=== PATIENT | female | born 2000 | race African-American/Black ===

== ENCOUNTER 2019-06-07 04:48 | Emergency (ER) | payer OTHER ==
[~2019-06-07] VITALS: Ht 157.5 cm; Wt 61.4 kg
[2019-06-07] MEDS ORDERED: ALBU8HFA IH (04:55)
[2019-06-07 04:59] VITALS: BP 116/75
== END 2019-06-07 05:31 | disposition home or self-care (01) ==
LOC: EMS 04:48
DX: R06.02 Shortness of breath (principal); J45.909 Unspecified asthma, uncomplicated; Z76.0 Encounter for issue of repeat prescription